=== PATIENT | male | born 1985 | race Two or more races ===

== ENCOUNTER 2022-04-23 07:17 | Inpatient (IN) | payer OTHER ==
[~2022-04-23] VITALS: Ht 165.1 cm; Wt 83.9 kg
[2022-04-23] MEDS ORDERED: ONDANSETRON HCL/PF 4 MG/2 ML VIAL IVP ONE (07:30)
[2022-04-23] MEDS ORDERED: MORPHINE SULFATE INJ 2 MG/ML DISP.SYRIN IV ONE ×2 (07:30→09:00)
[2022-04-23] MEDS ORDERED: IV NS 0.9% 1,000 ML BAG IV ONE (07:30)
[2022-04-23] MEDS ORDERED: FAMOTIDINE/PF INJ 20 MG/2 ML VIAL IV ONE ×2 (07:30→07:43)
--- NOTE | 2022-04-23 07:30 | NUR ---
Received pt came by pravalerio c/o abdominale pain since last night awake and alert abdomin tender to touch
--- NOTE | 2022-04-23 07:40 | NUR ---
Inserted ango catheter g 18 on [address] ac blood drow and sent to lab
[2022-04-23] MEDS ORDERED: ONDANSETRON HCL/PF 4 MG/2 ML VIAL ONE (07:43)
[2022-04-23] MEDS ORDERED: MORPHINE SULFATE INJ 4 MG/ML DISP.SYRIN ONE (07:43)
[2022-04-23 07:53] LABS: BASOPHILS # (AUTO) 0.1 K/uL (0.0-0.2); BASOPHILS % (AUTO) 0.5 % (0.0-2.0); EOSINOPHILS % (AUTO) 0.2 % (0.0-6.0); HEMATOCRIT 43 % (39-51); HEMOGLOBIN 14.2 g/dL (13.5-17.5); LYMPHOCYTES # (AUTO) 1.3 K/uL (0.8-4.8); LYMPHOCYTES % (AUTO) 6.8 % (20.0-44.0); MEAN CORPUSCULAR HGB CONC 33 g/dl (31.0-36.0); MEAN CORPUSCULAR VOLUME 87 fL (80-96); MONOCYTES # (AUTO) 0.8 K/uL (0.1-1.30); MONOCYTES % (AUTO) 4.3 % (2.0-12.0); NEUTROPHILS # (AUTO) 16.9 K/uL (1.8-8.9); NEUTROPHILS % (AUTO) 88.2 % (43.0-81.0); PLATELET COUNT (AUTO) 330 K/uL (150-450); RED BLOOD CELL COUNT(AUTO) 4.96 MIL/uL (4.5-6.0); WHITE BLOOD COUNT (AUTO) 19.2 K/uL (4.3-11.0)
--- NOTE | 2022-04-23 08:02 | NUR ---
to ct scan of abdomin
[2022-04-23 08:04] LABS: CALCIUM, SERUM 9.5 mg/dL (8.5-10.1); POTASSIUM 3.8 mmol/L (3.5-5.1)
[2022-04-23 08:12] LABS: ALBUMIN 4.3 g/dL (3.4-5.0); BILIRUBIN,DIRECT 0.1 mg/dL (0.0-0.2); BILIRUBIN,TOTAL 0.4 mg/dL (0.2-1.0); TOTAL PROTEIN, SERUM 7.4 g/dL (6.4-8.2)
[2022-04-23] MEDS ORDERED: MORPHINE SULFATE INJ 2 MG/ML DISP.SYRIN ONE (09:14)
--- NOTE | 2022-04-23 09:20 | NUR ---
DR HERRING TALKING TO DR BORJA
[2022-04-23] MEDS ORDERED: CEFTRIAXONE 1GM BAG (ER ONLY) 1 GM/50 ML PIGGYBACK IV ONE (09:30)
[2022-04-23] MEDS ORDERED: FLAGYL/NS RTU 500 MG/100 ML PIGGYBACK IV ONE (09:30)
--- NOTE | 2022-04-23 09:43 | NUR ---
COVID SWAB SENT TO LAB
[2022-04-23] MEDS ORDERED: CEFTRIAXONE 1GM BAG (ER ONLY) 50 ML IV ONE (09:45)
[2022-04-23] MEDS ORDERED: METRONIDAZOLE 500MG/ NS 100ML 100 ML IV ONE (09:45)
[2022-04-23] MEDS ORDERED: HYDROMORPHONE 1 MG/1 ML DISP.SYRIN ONE (10:43)
[2022-04-23] MEDS ORDERED: HYDROMORPHONE 1 MG/1 ML DISP.SYRIN IV ONE (11:00)
--- NOTE | 2022-04-23 11:10 | NUR ---
REPORT GIVEN TO MELANIE LY FOR KIMMY
--- NOTE | 2022-04-23 11:24 | NUR ---
TO ROOM 322 VIA GARNY PT ASLEEPY no sob no abdominal pain noted
--- NOTE | 2022-04-23 11:45 | NUR ---
RN OPENING NOTE RECEIVED PATIENT FROM EMERGENCY DEPARTMENT. ON ROOM AIR TOLERATING WELL. IV ACCESS ON LEFT ANTECUBITAL 18 GAUGE SALINE LOCKED. SAFETY MEASURES IMPLEMENTED. WILL CONTINUE PLAN OF CARE AND ANTICIPATE NEEDS.
[2022-04-23] MEDS ORDERED: ANESTHESIA TRAY IN PYXIS 1 EA TRAY MC ONE (12:23)
[2022-04-23] MEDS ORDERED: BUPIVACAINE MPF 0.5% W/EPI INJ 30 ML VIAL ONE (12:23)
[2022-04-23] MEDS ORDERED: ROCURONIUM BROMIDE 50 MG/5 ML ONE (12:35)
[2022-04-23] MEDS ORDERED: FENTANYL PF 100MCG/2ML AMPUL ONE (12:35)
--- NOTE | 2022-04-23 12:40 | NUR ---
PATIENT TRANSFERRED TO SURGICAL UNIT TO UNDERGO PROCEDURE.
--- NOTE | 2022-04-23 14:35 | NUR ---
PATIENT RETURNED FROM OPERATING ROOM. ON ROOM AIR TOLERATING WELL. IV ACCESS ON RIGHT AC IS FLUSHING WITH NO RESISTANCE. SURGICAL DRESSINGS INTACT. PATIENT COMFORTABLE AND RESTING. WILL CONTINUE PLAN OF CARE AND ANTICIPATE NEEDS.
[2022-04-23] MEDS: IV 1/2NS 1000 ML 1,000 ML IV PRN (14:57)
[2022-04-23] MEDS ORDERED: ACETAMINOPHEN 325 MG TABLET PO PRN (15:00)
[2022-04-23] MEDS ORDERED: ONDANSETRON HCL/PF 4 MG/2 ML VIAL IVP PRN (15:00)
[2022-04-23] MEDS ORDERED: MAGNESIUM HYDROXIDE 30 ML UDC PO PRN (15:00)
[2022-04-23] MEDS ORDERED: MAG HYDROX/AL HYDROX/SIMETH 30 ML UDC PO PRN (15:00)
[2022-04-23] MEDS ORDERED: HYDROCODONE/APAP 5/325MG TABLET PO PRN (15:00)
[2022-04-23] MEDS ORDERED: MORPHINE SULFATE INJ 2 MG/ML DISP.SYRIN IV PRN (15:00)
[2022-04-23] MEDS ORDERED: ZOLPIDEM TARTRATE 5 MG TABLET PO PRN (15:00)
[2022-04-23] MEDS ORDERED: Z GUARD REMEDY 4 OZ OINT TP PRN (15:00)
[2022-04-23 16:00] VITALS: BP 122/72
[2022-04-23] MEDS ORDERED: PIPERACILLIN /TAZOBACTAM 3.375 G in IV D5W 100 ML IV SCH ×2 (16:00→18:00)
[2022-04-23] MEDS: ZOSYN IVPB 3.375 G in IV D5W 50ml IV SCH ×2 (16:23→21:41)
[2022-04-23 17:08] LABS: BASOPHILS # (AUTO) 0.1 K/uL (0.0-0.2); BASOPHILS % (AUTO) 0.5 % (0.0-2.0); HEMATOCRIT 39 % (39-51); LYMPHOCYTES # (AUTO) 0.6 K/uL (0.8-4.8); LYMPHOCYTES % (AUTO) 3.2 % (20.0-44.0); MEAN CORPUSCULAR HGB CONC 34 g/dl (31.0-36.0); MEAN CORPUSCULAR VOLUME 86 fL (80-96); MONOCYTES # (AUTO) 0.3 K/uL (0.1-1.30); MONOCYTES % (AUTO) 1.4 % (2.0-12.0); NEUTROPHILS # (AUTO) 19.3 K/uL (1.8-8.9); NEUTROPHILS % (AUTO) 94.9 % (43.0-81.0); PLATELET COUNT (AUTO) 284 K/uL (150-450); RED BLOOD CELL COUNT(AUTO) 4.49 MIL/uL (4.5-6.0); WHITE BLOOD COUNT (AUTO) 20.3 K/uL (4.3-11.0)
[2022-04-23 17:42] LABS: CALCIUM, SERUM 8.3 mg/dL (8.5-10.1)
[2022-04-23 17:43] LABS: CREATININE 0.9 mg/dL (0.6-1.3)
--- NOTE | 2022-04-23 18:34 | NUR ---
RN CLOSING NOTE PATIENT REMAINS IN ROOM ON ROOM AIR TOLERATING WELL WITH OXYGEN SATURATION AT 97%. IV ACCESS ON LEFT ANTECUBITAL 18 GAUGE SALINE LOCKED RUNNING FLUIDS ORDERED. SAFETY MEASURES IMPLEMENTED. WILL ENDORSE TO NIGHTSHIFT RN FOR CONTINUATION OF CARE.
--- NOTE | 2022-04-23 19:56 | NUR ---
RN OPENING NOTE; RECEIVED PATIENT IN BED AAOX4 ABLE TO MAKE NEEEDS KNOWN,ON RM AIR VANESSA WELL, NO SIGN SOB/DISTRESS NOTED,NO COMPLAINED OF PAIN/DISCOMFORT AT THIS TIME,IV ACCESS ON LEFT ANTECUBITAL 18 GAUGE SALINE INTACT AND PATENT,SAFETY MEASURES IMPLEMENTED.CALL LIGHT WITHIN REACH,WILL CONTINUE TO MONITOR.
[2022-04-23 20:00] VITALS: BP 120/77
[2022-04-24] MEDS: ZOSYN IVPB 3.375 G in IV D5W 50ml IV SCH (03:51)
[2022-04-24] MEDS: IV 1/2NS 1000 ML 1,000 ML IV PRN (05:11)
--- NOTE | 2022-04-24 06:25 | NUR ---
RN CLOSING NOTE; PATIENT IN BED AAOX4 ABLE TO MAKE NEEEDS KNOWN,ON RM AIR VANESSA WELL, NO SIGN SOB/DISTRESS NOTED,NO COMPLAINED OF PAIN/DISCOMFORT DURING SHIFT,DUE MEDS GIVEN ORDER,ALL NEEDS ATTENDED,IV ACCESS ON LEFT ANTECUBITAL 18 GAUGE SALINE INTACT AND PATENT,SAFETY MEASURES IMPLEMENTED.CALL LIGHT WITHIN REACH,WILL ENDORSED TO NEXT SHIFT.
[2022-04-24 07:00] VITALS: BP 142/94
[2022-04-24 07:19] LABS: BASOPHILS % (AUTO) 0.1 % (0.0-2.0); HEMATOCRIT 38 % (39-51); LYMPHOCYTES # (AUTO) 1.8 K/uL (0.8-4.8); LYMPHOCYTES % (AUTO) 9.6 % (20.0-44.0); MEAN CORPUSCULAR HGB CONC 34 g/dl (31.0-36.0); MEAN CORPUSCULAR VOLUME 86 fL (80-96); MONOCYTES # (AUTO) 1.1 K/uL (0.1-1.30); NEUTROPHILS # (AUTO) 15.9 K/uL (1.8-8.9); NEUTROPHILS % (AUTO) 84.3 % (43.0-81.0); PLATELET COUNT (AUTO) 306 K/uL (150-450); RED BLOOD CELL COUNT(AUTO) 4.46 MIL/uL (4.5-6.0); WHITE BLOOD COUNT (AUTO) 18.8 K/uL (4.3-11.0)
[2022-04-24 07:22] LABS: CALCIUM, SERUM 8.6 mg/dL (8.5-10.1); CREATININE 0.9 mg/dL (0.6-1.3); POTASSIUM 3.7 mmol/L (3.5-5.1)
[2022-04-24] MEDS ORDERED: PANTOPRAZOLE 40 MG TABLET.DR PO SCH (07:30)
[2022-04-24] MEDS ORDERED: NICOTINE PATCH (21MG) 21 MG PATCH.TD24 TD SCH (09:00)
[2022-04-24] MEDS ORDERED: ZOSYN IVPB 3.375 G in IV D5W 50ml IV SCH (12:00)
[2022-04-24] MEDS ORDERED: POTASSIUM CL. PREMIX PERIPHER. 50 ML IV SCH (12:00)
[2022-04-24] MEDS ORDERED: AMOX-427 PO (13:18)
--- NOTE | 2022-04-24 15:14 | NUR ---
ELECTROPLATING WORKER NOTE PATIENT DISCHARGED FROM UNIT @ 1510 VIA WHEELCHAIR AND PRIVATE CAR. ACCOMPANIED BY . ALL BELONGINGS TAKEN WITH PATIENT. INVENTORY LIST SIGNED AND DATED. IV ACCESS TO RFA TAKEN OUT. NO BLEED ING OR TRAUMA TO SITE OBSERVED. PATIENT AMBULATED TO CAR WITH STEADY GATE.
== END 2022-04-24 15:15 | disposition home or self-care (01) | DRG 234 ==
LOC: ER 07:20 → TELE 11:04 → MED 11:14
PROVIDERS: ADMIT Student in an Organized Health Care Education/Training Program; ATTEND Student in an Organized Health Care Education/Training Program
PROC: 0DTJ4ZZ Resection of Appendix, Percutaneous Endoscopic Approach (ICD-10-PCS; principal; 2022-04-23)
DX: K35.30 Acute appendicitis with localized peritonitis, without perforation or gangrene (principal); R65.10 Systemic inflammatory response syndrome (SIRS) of non-infectious origin without acute organ dysfunction; K76.0 Fatty (change of) liver, not elsewhere classified; D64.9 Anemia, unspecified; F17.210 Nicotine dependence, cigarettes, uncomplicated; D72.829 Elevated white blood cell count, unspecified; Z20.822 Contact with and (suspected) exposure to COVID-19
CPT/HCPCS: 36415; 71045-TC; 80048-TC; 80076-TC; 83690-TC; 83735-TC; 84100-TC; 85025-TC; 85730-TC; 87081-TC; C9803; G0378; J0330; J0690; J0696; J1100; J1170; J2270; J2405; J2543; J2704; J3010; J3490; J7030; J7060